=== PATIENT | female | born 1985 | race Caucasian/White ===

== ENCOUNTER → 2018-04-12 08:44 | Outpatient (CLI) | payer OTHER, SELFPAY | PROVIDERS: Family Provider Family Medicine; PCP Family Medicine; Visit Provider Physician Assistant Surgical | DX: S96.912A Strain of unspecified muscle and tendon at ankle and foot level, left foot, initial encounter (principal) | CPT/HCPCS: 73630 ==

== ENCOUNTER → 2018-08-26 08:21 | Outpatient (CLI) | payer OTHER, SELFPAY ==
--- NOTE | 2018-08-26 08:35 | RAD_ITS ---
STUDY: AIR-CONTRAST UPPER GI SERIES AND SMALL BOWEL FOLLOW-THROUGH EXAMINATION. REASON FOR EXAM: Female, 33 years old. Abdominal pain. Diarrhea/constipation. FLUOROSCOPY TIME (if supplied): (0:50) minutes/seconds. 18 images were obtained. TECHNIQUE: The patient ingested barium. Multiple images of the esophagus, stomach and duodenum were obtained. Following this, a small bowel follow-through examination was performed. COMPARISON: None. FINDINGS: The esophagus is unremarkable. There is no evidence of mass lesion. There is no evidence of gastroesophageal reflux. The stomach and duodenum are unremarkable. There is no ulceration. No mass lesion is seen. A small bowel follow-through examination was then obtained. The small bowel transit is normal. There is no evidence of intrinsic or extrinsic small bowel disease. RAD/Upper GI/w Small Bowel IMPRESSION: Unremarkable examination. Electronically Signed: Bo West MD at 13:57 EST Tel [phone], Service support ,
== END ==
LOC: RAD 08:24
PROVIDERS: Family Provider Family Medicine; PCP Family Medicine; Referring Provider Nurse Practitioner Adult Health; Visit Provider Nurse Practitioner Adult Health
DX: R10.13 Epigastric pain (principal); R19.4 Change in bowel habit
CPT/HCPCS: 74249